=== PATIENT | female | born 1965 | race African-American/Black ===

== ENCOUNTER 2019-07-27 16:26 | Outpatient (CLI) | payer BC, SELFPAY ==
--- NOTE | ~2019-07-27 | MM_ITS ---
EXAMINATION: MM screening [facility] BI w karin HISTORY: Screening mammogram TECHNIQUE: Craniocaudal and mediolateral oblique 3-D tomosynthesis images were obtained and synthetic 2-D images were generated. CAD analysis was submitted and interpreted. COMPARISON: 06/21/2018, 06/12/2017, 06/10/2016 BREAST PARENCHYMAL COMPOSITION: The breasts are almost entirely fatty. FINDINGS: Stable intramammary lymph nodes are again noted in the upper outer quadrant of the left roverto ast. There is no evidence of suspicious mass, calcification, or architectural distortion to suggest m alignancy in either breast. There has been no suspicious interval change. IMPRESSION: 1. No mammographic evidence of malignancy. 2. Recommend routine screening mammography in one year. BI-RADS Category 2: Benign finding(s). Reviewed, dictated and finalized at location A.
== END 2019-07-27 16:27 | disposition home or self-care (01) ==
LOC: ANHIMG 16:30
PROVIDERS: PCP Physician Assistant; Visit Provider Physician Assistant
DX: Z12.31 Encounter for screening mammogram for malignant neoplasm of breast (principal)
CPT/HCPCS: 77063; 77067

== ENCOUNTER 2020-08-23 15:01 | Outpatient (CLI) | payer BC, SELFPAY ==
--- NOTE | ~2020-08-23 | MM_ITS ---
EXAMINATION: MM screening [facility] BI w karin HISTORY: Screening mammogram TECHNIQUE: Craniocaudal and mediolateral oblique 3-D tomosynthesis images were obtained and synthetic 2-D images were generated. CAD analysis was submitted and interpreted. COMPARISON: Serial screening mammograms dating back to 05/17/2015 BREAST PARENCHYMAL COMPOSITION: The breasts are almost entirely fatty. FINDINGS: There is a biopsy marker on the left; history of prior benign left breast biopsy. Stable intramammary lymph nodes in the axillary tail areas, without significant change since 05/17/20 15. There is no evidence of suspicious mass, calcification, or architectural distortion to suggest ma lignancy in either breast. There has been no suspicious interval change. IMPRESSION: 1. No mammographic evidence of malignancy. 2. Recommend routine screening mammography in one year. BI-RADS Category 2: Benign finding(s). Reviewed, dictated and finalized at location A.
== END 2020-08-23 15:02 | disposition home or self-care (01) ==
LOC: ANHIMG 15:03
PROVIDERS: PCP Physician Assistant; Visit Provider Physician Assistant
DX: Z12.31 Encounter for screening mammogram for malignant neoplasm of breast (principal)
CPT/HCPCS: 77063; 77067

== ENCOUNTER 2021-10-22 15:15 | Outpatient (CLI) | payer BC, SELFPAY ==
--- NOTE | ~2021-10-22 | MM_ITS ---
EXAMINATION: MM screening [facility] BI w karin HISTORY: Screening mammogram TECHNIQUE: Craniocaudal and mediolateral oblique 3-D tomosynthesis images were obtained and synthetic 2-D images were generated. CAD analysis was submitted and interpreted. COMPARISON: 08/23/2020, 07/27/2019, 06/21/2018 BREAST PARENCHYMAL COMPOSITION: The breasts are almost entirely fatty. FINDINGS: There is no suspicious mass, calcification, or architectural distortion to suggest malignan cy in either breast. There has been no suspicious interval change. IMPRESSION: 1. No mammographic evidence of malignancy. 2. Recommend routine screening mammography in one year. BI-RADS Category 1: Negative Reviewed, dictated and finalized at location A.
== END 2021-10-22 15:16 | disposition home or self-care (01) ==
PROVIDERS: PCP Physician Assistant; Visit Provider Physician Assistant
DX: Z12.31 Encounter for screening mammogram for malignant neoplasm of breast (principal)
CPT/HCPCS: 77063; 77067

== ENCOUNTER 2024-08-26 14:46 | Outpatient (CLI) | payer BC, SELFPAY ==
--- NOTE | ~2024-08-26 | MM_ITS ---
EXAMINATION: MM screening [facility] BI w karin HISTORY: Screening TECHNIQUE: Craniocaudal and mediolateral oblique 3-D tomosynthesis images were obtained and synthetic 2-D images were generated. CAD analysis was submitted and interpreted. COMPARISON: Comparison to multiple prior studies sequentially, with oldest reviewed study dated 06/12. BREAST PARENCHYMAL COMPOSITION: Not Dense: The breasts are almost entirely fatty. FINDINGS: There is no evidence of suspicious mass, calcification, or architectural distortion to sugg est malignancy in either breast. There has been no suspicious interval change. IMPRESSION: 1. No mammographic evidence of malignancy. 2. Recommend routine screening mammography in one year. BI-RADS Category 1: Negative Reviewed, dictated and finalized at location A.
--- OUTSIDE RECORDS SUMMARY | 2024-08-26 14:49 | XMS_ITS | Clinical Summary ---
Author Organization [facility] Administrative Offices Address [address] [place] [address] Care Team Providers Care Trial Management Associate Name Role Phone Césaryunier Jeannie EVELIO Primary Care Provider [phone] Allergies No known active allergies Medications HYDROcodone-acet aminophen (HYCET) 7.5-325 mg/15 mL SolutionIndicati ons:Preop testing Take 15 mL by mouth every 6 hours as needed for Pain, Moderate. Max Daily Amount: 60 mL 360 mL 05/30/2020 2:46 PM SCALLOP DREDGER 05/29/2020 Active ondansetron (Zofran ODT) 4 mg Tablet, Rapid Dissolve Place 1 Tablet (4 mg) under tongue every 6 hours as needed for Nausea. 28 Tablet 05/30/2020 2:46 PM SCALLOP DREDGER 05/29/2020 Active Active Problems No known active problems Immunizations Immunization Administration Dates Next Due INFLUENZA VACCINE QUADRIVALE NT 6 MOS UP CELL DERIVED PF IM 01/20/2018 Influenza Seasonal Unspecified Formulation IM Social History Tobacco Use Types Packs/Day Years Used Date Smoking Tobacco: Never Smokeless Tobacco: Never Alcohol Use Standard Drinks/Week Comments Not Currently 0 (1 standard drink = 0.6 oz pur e alcohol) Comments No Sex and Gender Information Value Date Recorded Sex Assigned at Not on file Legal Sex Female 10:07 AM SCALLOP DREDGER Gender Identity Not on file Sexual Orientation Not on file Last Filed Vital Signs Vital Sign Reading Time Taken Comments Blood Pressure 172/78 05/30/2020 12:00 PM SCALLOP DREDGER Pulse 64 05/30/2020 12:00 PM SCALLOP DREDGER Temperature 37.2 C (98.9 F) 05/30/2020 12:00 PM SCALLOP DREDGER Respiratory Rate 16 05/30/2020 12:00 PM SCALLOP DREDGER Oxygen Saturation 98% 05/30/2020 12:00 PM SCALLOP DREDGER Inhaled Oxygen Concentration - - Weight 124 kg (273 lb 4.8 oz) 05/30/2020 4:00 AM SCALLOP DREDGER Height 160 cm (5' 3 ) 05/30/2020 4:00 AM SCALLOP DREDGER Body Mass Index 48.41 05/30/2020 4:00 AM SCALLOP DREDGER Plan of Treatment Health Maintenance Due Date Last Done Comments DTAP/TDAP/TD VACCINES (1 - Tdap) 1984 HEPATITIS B VACCINES (1 of 3 - 19+ 3-dose series) 1984 HPV/Cotest (21-29) 1986 PAP SMEAR 1986 CERVICAL CANCER SCREENING 09/21/1995 HPV/Cotest (30-65) 09/21/1995 PAP SMEAR 09/21/1995 BREAST CANCER SCREENING 2005 COLORECTAL SCREENING 2010 Colorectal Cancer Screening 2010 FIT-DNA Q 3 years 2010 FIT/FOBT Q 1 year 2010 Flex Sig/CT Colonography Q 5 years 2010 ZOSTER VACCINE (1 of 2) 09/21/2015 INFLUENZA VACCINE (#1) 2023 8, 05/18/2014 PNEUMOCOCCAL VACCINE 0-49 YEARS Aged Out No longer eligible b ased on patient's age to complete this topic Medical Devices Implanted Type Area Mixer And Blender Device Identifier Shelf Expiration Date Model / Serial / Lot Seamguard Endogia 60 Prpl [id number] - [id number] Implanted:Qt y: 1 on 05/29/2020 by Reilly Wilkins MD at [facility] Biological N/A: [employer] [id number] 12/27/2022 12BSGTRI 60P / / [id number] Seamguard Endogia 60 Prpl [id number] - [id number] Implanted:Qt y: 1 on 05/29/2020 by Reilly Wilkins MD at [facility] Biological N/A: Stomach [employer] [id number] 12/27/2022 12BSGTRI 60P / / [id number] Seamguard Endogia 60 Blk [id number] - [id number] Implanted:Qt y: 1 on 05/29/2020 by Reilly Wilkins MD at [facility] Biological N/A: Stom[employer] [id number] 09/05/2022 12BSGTRI 60B / / [id number] Seamguard Endogia 60 Blk [id number] - [id number] Implanted:Qt y: 1 on 05/29/2020 by Reilly Wilkins MD at [facility] Biological N/A: Stomach [employer] [id number] 09/05/2022 12BSGTRI 60B / / [id number] Insurance BCBS BLUE ACCESS/TRUE BLUE PPO RX [facility] [employer] RX [employer] PLANS (INTERNAL) [facility] Plans Advance Directives For more information, please contact: [phone] * Full Code (Latest Code Status on File) Date Activated Date Inactivated Comments 05/29/2020 5:48 AM 05/29/2020 9:44 AM Care Teams Trial Management Associate Relationship Specialty Start Date End Date Jeannie Cervantes PA PCP - General Physician Infant Lead Teacher 05/15/20
--- OUTSIDE RECORDS SUMMARY | 2024-08-26 14:49 | XMS_ITS | Data Portability ---
Author Organization [facility] ARAVIND Marce Doshi Address [address] [place] [address] Care Team Providers Care Bindery Leadperson Name Role Phone LISA MORENO Primary Care Provider Unavailab le Assessment No assessment recorded. Plan of Treatment Reminders Order Date Submit Date Provider Last Modified By Organization Details Last Modified Time Details Appointments ANY 15 2024 03:00P M EVELIO Joshua Not available Not available Not available Lab TSH + free T4, serum 2024 [facility]25 [facility], [address], [address], [place], [address], 07/07/2024 12:57:55 CMP, serum or plasma 2024 025 [facility], [address], [address], [place], [address], 07/07/2024 12:57:55 CBC w/ auto diff 2024 025 [facility], [address], [place], [address], 07/07/2024 12:57:55 lipid panel, serum 2024 025 [facility] [employer] [facility], [address], [address], [place], [address], 07/18/2024 10:23:14 vitamin B12 + folate, serum or blood 2024 025 [facility], [address], [place], [place], [address], 07/07/2024 12:57:55 vitamin D, 25-hydrox y, total, serum 2024 [facility], [address], [place], [place], [address], 07/07/2024 12:57:55 iron + TIBC + ferritin, serum 2024 [facility], [address], [place], [place], [address], 07/07/2024 12:57:55 magnesium , serum or plasma 2024 [facility], [address], [place], [place], [address], 07/07/2024 12:57:56 zinc, serum or plasma 2024 [place] [address] [facility], [address], [place], [place], [address], 07/07/2024 12:57:56 HbA1c (hemoglob in A1c), blood 2024 [place] [address] [facility], [address], [place], [place], [address], 07/07/2024 12:57:55 Referral None recorded. Procedures None recorded. Surgeries None recorded. Imaging MAMMO, screening , digital, bilateral [address] (Mammography) , [address], [place], [address], 07/25/2024 10:42:46 Medication Orders Wegovy 0.25 mg/0.5 mL subcutane ous pen injector 2024 025 [facility][id number], [address], [place], [address], 07/19/2024 13:18:22 losartan 100 mg-hydroc hlorothia zide 25 mg tablet 2024 025 [facility]/Pharmacy #[id number], [address], [place], [address], 06/15/2024 15:58:56 Patient TargetsNo targets recorded. Patient Instructions Encounter Date Encounter Id Patient Instructions Last Modified By Organization Details Last Modified Time 06/15/2024 [id number] A healthy lifestyle: care instructions Not available 06/15/2024 15:56:21 07/22/2024 [id number] A healthy lifestyle: care instructions Not available 07/22/2024 16:16:32 Reason for Referral None Reported. Results Created Date Observation Date Name Description Value Unit Range Abnormal Flag Note LastModifiedBy Organization Detail LastModifiedTime Result Notes None recorded. Problems Name Problem SNOMED Code Status Onset Date Resolution Date Notes Provider Name and Address Organization Details Recorded Time Body mass index 40+ - severely obese 937597135 Active 2024 EVELIO Joshua Attn: Surya pinon,[address] [place], [address], [facility] 15:56:16 Obesity 668547225 Active 2024 EVELIO Joshua Attn: Surya pinon,[address] [place], [address], [place] [facility] 15:56:17 Left side sciatica 3879275175607 04 Active 2024 EVELIO Joshua Attn: Surya g,[address] [place], [address], [place] [facility] 21:52:43 Benign essential hypertensio n 6666671 Active 2024 EVELIO Joshua Attn: Surya g,[address] [facility], [place], [address], [facility] 16:16:17 Long-term drug therapy Active 2024 EVELIO Joshua Attn: Surya pinon,[address] [facility], [place], [address], [facility] 16:16:24 Hyperlipide jazmin 06034245 Active 2024 EVELIO Joshua Attn: Surya pinon,[address], [place], [address], [facility] 19:52:37 Problem Notes None recorded. Procedures Surgical History Date Name Laterality Status Provider Name and Address Organization Details Recorded Time Eye Surgery completed Irvin Simmons MA [facility] 06/15/2024 15:19:08 Gastric Bypass completed Irvin Simmons MA [facility] 06/15/2024 15:19:15 Imaging Results None recorded. Procedure Notes None recorded. Medical Equipment None Reported. Allergies No known drug allergies Medications Name Sig Start Date Stop Date Status Note LastModified by Organization Details LastModified Time Prescriptio n - Prior Authorizati on Request active Not Available Not Available N ot Available cyclobenzap rine 10 mg tablet Take 1 tablet 3 times a day by oral route as needed. 2024 active Not Available Not Available Not Avai lable losartan 100 mg-hydrochl orothiazide 25 mg tablet Take 1 tablet every day by oral route. 2024 active Not Available Not Available Not Avai lable ergocalcife rol (vitamin D2) 1,250 mcg (50,000 unit) capsule TAKE 1 CAPSULE WEEKLY FOR VITAMIN D active Not Available Not Available No t Available naproxen 500 mg tablet TAKE 1 TABLET TWICE A DAY BY ORAL ROUTE NEEDED. active Not Available Not Available No t Available Wegovy 1 mg/0.5 mL subcutaneou s pen injector Inject 1 mg every week by subcutane ous route. 2024 active Not Available Not Available Not Avai lable Wegovy 0.25 mg/0.5 mL subcutaneou s pen injector INJECT 0.25 MG EVERY WEEK BY SUBCUTANE OUS ROUTE. 07/19 completed Not Available Not Available Not Available Wegovy 0.5 mg/0.5 mL subcutaneou s pen injector INJECT 0.5 MG SUBCUTANE OUSLY EVERY WEEK 08/25 completed Not Available Not Available Not Available Vitals Date Recorded Body weight Body mass index (BMI) Body height Oxygen saturation Oxygen saturation in Arterial blood by Pulse oximetry Heart rate Respiratory rate Systolic blood pressure Diastolic blood pressure Provider Name and Address Organization Details Last Updated DateTime 5 816677. 61 g 41.5 kg/m2 160.02 cm 99 % 99 % 73 /min 18 /min 148 mm[Hg] 82 mm[Hg] Irvin Simmons MA [facility] 16:11:05 Date Recorded Systolic blood pressure Diastolic blood pressure Provider Name and Address Organization Details Last Updated DateTime 06/15/2024 170 mm[Hg] 80 mm[Hg] EVELIO Joshua Attn: Accounting, [place], [address], [facility] 06/15/2024 16:05:36 Date Recorded Body height Body mass index (BMI) Body weight Heart rate Oxygen saturation Oxygen saturation in Arterial blood by Pulse oximetry Systolic blood pressure Diastolic blood pressure Provider Name and Address Organization Details Last Updated DateTime 160.02 cm 40.7 kg/m2 430939. 45 g 73 /min 99 % 99 % 150 mm[Hg] 82 mm[Hg] Abigail Avalos MA [facility] 16:02:27 Date Recorded Respiratory rate Systolic blood pressure Diastolic blood pressure Systolic blood pressure Diastolic blood pressure Provider Name and Address Organization Details Last Updated DateTime 16 /min 140 mm[Hg] 80 mm[Hg] 140 mm[Hg] 80 mm[Hg] EVELIO Joshua Attn: Accountin g,[address] [place], [address], [facility] 16:14:50 Social History Question Answer Notes LastModified by Organizat ion Details LastModified Time Tobacco Smoking Status Never Smoker Irvin Simmons MA null, [facility] 06/15/2024 15:19:48 Do You Have An Advance Directive? No Information n ot available 07/22/2024 What Is Your Level Of Alcohol Consumption? Occasional Information not available 06/15/2024 How Many Years Have You Consumed Alcohol? -1 Information not available 06/15/2024 Are You Blind Or Do You Have Difficulty Seeing? No Information n ot available 07/22/2024 What Is Your Level Of Caffeine Consumption? Heavy Information not available 07/22/2024 In The 14 Days Before Symptom Onset, Have You Had Close Contact With A Laboratory-confirm ed COVID-19 While That Case Was Ill? No Information n ot available 06/15/2024 In The 14 Days Before Symptom Onset, Have You Had Close Contact With A Person Who Is Under Investigation For COVID-19 While That Person Was Ill? No Information not available 06/15/2024 Have You Been To An Area Known To Be High Risk For COVID-19? No Information not available 06/15/2024 Are You Currently Employed? Yes Information not available 07/22/2024 Are You Deaf Or Do You Have Serious Difficulty Hearing? No Information not available 07/22/2024 What Type Of Diet Are You Following? 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 No Information not available 07/22/2024 What Was The Date Of Your Most Recent Tobacco Screening? 07/22/2024 Information not available 07/22/2024 What Is Your Relationship Status? Information not available 07/22/2024 Do You Use Your Seat Belt Or Car Seat Routinely? Yes Information not available 07/22/2024 Do You Have Smoke And Carbon Monoxide Detectors In Your Home? Yes Information not available 06/15/2024 Do You Feel Stressed (tense, Restless, Nervous, Or Anxious, Or Unable To Sleep At Night)? [id number] Information not available 07/22/2024 Do You Use Any Illicit Or Recreational Drugs? No Information not available 06/15/2024 Do You Use Sunscreen Routinely? No Information not available 07/22/2024 Has Tobacco Cessation Counseling Been Provided? No Information not available 06/15/2024 Do You Or Have You Ever Used Any Other Forms Of Tobacco Or Nicotine? No Information not available 06/15/2024 Sex: Female Functional Status Question Answer Note LastModified by Organization D etails LastModified Time Are you able to care for yourself? Yes Information n ot available 06/15/2024 What is your exercise level? None Information not available 07/22/2024 Mental Status None recorded. Family History Relationship Description Onset Age of this Age Resolved Age Notes LastModified by Organization Details LastModified Time Father Hypertensive disorder [email or web address] Not available 2024 15:19:26 Mother Malignant tumor of ovary tcarterma Not available 2024 15:19:32 Medical History Condition Response Coronary Artery Disease N Other N High Blood Pressure Y Atrial Fibrillation N Kidney or Bladder Problems N Thyroid Problems N GI Problems N Depression N COPD N Blood Clots N Have you had a mammogram in the last yea r? N Skin Problems N Anemia N Heart Attack (ND) N Anxiety Disorder N Diabetes N Muscle, Joint, or Bone Problems N Seizures/Epilepsy N Have you had a colonoscopy in the last 1 0 years? N Acid Reflux (GERD) N Cancer N Stroke N Asthma N Allergies N Have you had a PSA blood test in the las t year? N High Cholesterol N Hepatitis N Liver Disease N Headaches N Heart Failure N Osteoporosis N Gynecological History Statement/Question Response Menses Monthly N If Post Menopausal, Age at Menopause 35 Current Control Method None Obstetrics History GPAL:G 0 P 0 0 0 0 Immunizations Vaccine Type Date Status Note Provider Nam e and Address Organization Details Recorded Time COVID-19, mRNA, LNP-S, PF, 100 mcg/0.5mL dose or 50 mcg/0.25mL dose 1 completed Irvin Simmons [place] null, [place] [facility] 06/15/2024 15:28:06 COVID-19, mRNA, LNP-S, PF, 100 mcg/0.5mL dose or 50 mcg/0.25mL dose 1 completed Irvin Simmons MA [facility] 06/15/2024 15:28:06 Influenza, split virus, trivalent, preservative 5 completed Irvin Simmons MA [facility] 06/15/2024 15:28:06 Past Encounters Encounter ID Performer Location Encounter Start Date Encounter Closed Date Diagnosis/Indication Diagnosis SNOMED-CT Code Diagnosis ICD10 Code Diagnosis Note [id number] EVELIO Joshua [facility] [place] [address] [place] [address] 06/15/2024 14:58:36 06/15/2024 16:16:13 Adult health examination 296817058 Z00.00 Annual wellness exam completed and all labs were ordered for fasting status for updated evaluation and metabolic panels. Cholesterol screening 27 8508149 Z13.220 Fasting lipid panel due Diabetes m ellitus screening 497163643 Z13.1 Annual diabetes screening due Thyroid di sorder screening 958283917 Z13.29 Routine thyroid function testing due Benign ess ential hypertension 0865125 I10 Blood pressure is 170/80 today on multiple checks. She has not been consistent with dosing medication daily at all. We will renew losartan 100/HCTZ 25 mg daily. Patient must take this daily. We will also follow up in 1 month Long-term drug therapy 760766363 Z79.891 History of bariatric surgical procedure 543162390 Z98.84 Full vitamin panel also post bariatric surgery ordered Body mass index 40+ - severely obese 815811935 Z68.41 start Wegovy injectable therapy. no personal or family hx of Medullary thyroid cancer or MEN conditions . Obesity 098037017 E66.9 discussed healthy diet, exercise, controllin g carbohydra domenico and added sugars in the diet Left side sciatica 55562 83096 33699 M54.32 Patient has chronic left-sided sciatica that waxes and wanes. She does have a handicap placard paper to be completed for renewal Screening mammography 24 139424 Z12.31 Annual mammogram ordered [id number] EVELIO Joshua [facility] [place] [address] [place] [address] 07/22/2024 15:45:38 07/22/2024 16:19:43 Obesity 582076440 E66.9 discussed healthy diet, exercise, controllin g carbohydra domenico and added sugars in the diet Body mass index 40+ - severely obese 415058906 Z68.41 BMI 40.7 Benign ess ential hypertension 6992411 I10 Continue losartan HCTZ 100/25 mg daily. Follow-up in 6 months Long-term drug therapy 751458993 Z79.891 All labs are up-to-date and reviewed Hyperlipidemia 78145194 E78.5 LDL at 119, subtle elevation. Encourage weight loss and exercise to help manage LDL reduction Health Concerns Section Related Observation LastModified by Organization Detai ls LastModified Time None Recorded Concern Status LastModified by Organization Details LastModified Time None Recorded Advance Directives Directive N: Payers Encounter Date Sequence Insurance Name Policy Number Policy Ryan Covered Member ID Ryan Member ID Guarantor Name 06/15/2024 1 [employer] [id number] August [facility] [id number] Liz Vicente Fishman 07/22/2024 1 [employer] [id number] August [facility] [id number] [facility] Notes Date Note Type Note Provider Name and Address Organization Details Recorded Time 5 text/html HypertensionReported bypatient.Notes:Patient has not been seen in nearly 2 years. She was not dosing her losartan hydrochlorothiazide tablets regularly so she has stretch medications to where she has a few days left. Unfortunately blood pressure is still very high today and no where near goal. She is due for all of her routine labs she does have a history of bariatric sleeve surgery. She is up 16 lb from her baseline loss. EVELIO Joshua Attn: Accounting,[address] [place], [address], [place] [facility] 06/15/2024 21:53:38 5 text/html HyperlipidemiaReported bypatient.Duration:chronic Current Therapy:currently taking:; last cholesterol level: (187); last LDL level: (119); last triglyceride level: (67); last HDL level: (52) Compliance:compliant; compliant with diet;does not exercise Complications:no coronary artery disease; no peripheral artery disease; no cardiovascular disease Risk Factors:hypertension;obesit yHypertensionReported bypatient.Notes:Patient is taking losartan 100 mg/hydrochlorothiazide 25 mg daily for blood pressure management. She is stable. She is working on losing a little bit of weight which will further help with the blood pressure management. EVELIO Joshua Attn: Accounting,[address] [place], [address], [facility] 08/14/2024 19:53:03 OBGyn Episode No OBEpisode recorded.
--- OUTSIDE RECORDS SUMMARY | 2024-08-26 14:49 | XMS_ITS | Encounter Summary ---
Author Organization [facility] Address [address] [place] [address] Care Team Providers Care Cardiovascular Specialist Name Role Phone Jeannie Cervantes Primary Care Provider [phone] Encounter Details Date Type Department Care Team (Late st Contact Info) Description 04/18/2020 Abstract [facility] Non Integrated Provider [address] [place] [id number] Reilly Wilkins MD [address] [place] [address] [place] [address] Social History Tobacco Use Types Packs/Day Years Used Date Smoking Tobacco: Never Assessed Comments Unknown Sex and Gender Information Value Date Recorded Sex Assigned at Not on file Legal Sex Female 10: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
== END 2024-08-26 14:47 | disposition home or self-care (01) ==
PROVIDERS: PCP Physician Assistant; Visit Provider Physician Assistant
DX: Z12.31 Encounter for screening mammogram for malignant neoplasm of breast (principal)
CPT/HCPCS: 77063; 77067